=== PATIENT | female | born 1975 | race Caucasian/White ===

== ENCOUNTER 2016-10-22 09:31 | Emergency (ER) | payer OTHER ==
[~2016-10-22] VITALS: Ht 165.1 cm; Wt 63.6 kg
[2016-10-22 09:34] VITALS: BP 159/105; PULSE 92; RESP 18; O2SAT 100
[2016-10-22 09:50] VITALS: BP 153/100; PULSE 82; RESP 20; O2SAT 99
--- NOTE | 2016-10-22 09:56 | ED.REPORT ---
[facility] Illness Date of Service Oct 22, 2016 ED Provider: The patient is a 41 yo female with history of psoriasis and gastric bypass who presents to the ED for a sudden onset of neck pain, left arm pain, and headache that started yesterday. The patient reports sharp, achy pain in her neck that radiates to the left arm. She also admits to generalized weakness, nausea, occipital headache, and numbness/tingling in her left hand. The numbness is worst at the first 3 digits. There is no injury or obvious trigger. No relieving factor. The pain is worse with any movement of the neck. Patient reports similar, but milder symptoms about [address] [facility]. She was diagnosed with a "pinched nerve" and was given both oral pain medications and injection. She has not had any symptoms since and denies chronic neck pain. She denies fever, chills, neck stiffness, vomiting, abdominal pain, CP, SOB, change in mental status, slurred speech, or facial droop. She used to take Methotrexate for psoriasis in the past but has stopped taking for awhile. She has not seen a doctor for a long time. However, she reports an incident last December 2015 when she went to for ankle edema and was found to have a Hgb of 7. She was sent to the ED for blood transfusion and was sent home with Hgb of 9. She has not had any blood work since. Of note, patient is in the process of moving to [place]. Nursing Notes Stated Complaint: LEFT ARM NUMB Chief Complaint: Neuro Symptoms/ Deficits Nursing Notes Reviewed: Yes Allergies: Uncoded Allergies: PENICILLIN (Allergy, Intermediate, swelling, 10/22/16) Scheduled PRN Cyclobenzaprine (Cyclobenzaprine) 7.5 Mg Tablet 7.5 MG PO HS PRN PRN Spasm Hydrocodone-Acetaminophen 10-325 mg (Hydrocodone-Acetaminophen 10-325 mg) 1 Each Tablet 1 TABLET PO Q6H PRN PRN For Pain Hydroxyzine Pamoate (HydrOXYzine Pamoate) 50 Mg Capsule 50 MG PO Q6H PRN PRN For Anxiety General Time Seen by MD: 09:55 Chief Complaint Headache Hx Obtained From: Patient Arrived By: Walk-in Onset Occurred: Yesterday Symptom Duration: Since onset Location: : Arm left: Elbow left: Forearm left: Hand left: Head: Neck: Shoulder left: Wrist left Quality: Sharp Radiation: : Arm left: Shoulder Severity: Current: Pain level 10 out of 10 Severity: Maximum: Pain level 10 out of 10 Associated with: Reports: Headache, Nausea, Numb extremities, Pain, Denies: Abdominal pain, Anorexia, Difficulty swallowing, Dizziness, Fever, Loss of consciousness, Shortness of breath, Vision change, Vomiting Pertinent Negative: Pt denies other symptoms Exacerbated by: Moving affected area Pertinent Negative: Relieved by nothing Recent Healthcare: No recent doctor visit, No recent hospitalization Similar Sx Previous: Yes Past Medical History Past Medical History Anemia Psoriasis Past Surgical History x 1 Gastric bypass in 2009 Family History Mom at 62 yo due to breast cancer Smoking History Light Tobacco Smoker Social History Alcohol Use: "Social" Drug Use: THC (occasionally) Other Social History: Smokeless tobacco Ambulatory Status Independent Review of Systems Full Review of Systems Constitutional: Reports: Fatigue, Denies: Chills, Fever, Weakness - generalized Eyes: Denies: Blurred bilateral, Discharge bilateral, Eye pain bilateral, Photophobia, Redness right, Visual loss bilateral Ears / Nose / Throat: Reports: Earache left, Denies: Sinus problem, Sore throat, Voice change Respiratory: Denies: Dyspnea on exertion, Pleuritic pain, Shortness of breath, Wheezing Cardiovascular: Denies: Chest pain, Edema, Orthopnea, Palpitations, Syncope GI: Reports: Nausea, Denies: Abdominal pain, Constipation, Diarrhea, Dysphagia, Vomiting Female: Reports: (patient started menopause since she was 31 yo, unknown cause), Denies: Dysuria, Flank pain, Hematuria Hematologic: Denies Adenopathy, Denies Bleeding, Denies Bruising Neurologic: Reports: Headache, Numbness (worst in the first 3 digits on the left.), Denies: Abnormal movement, Bladder dysfunction, Bowel dysfunction, Change LOC , Confusion, Dizziness, Focal weakness Psychiatric: Reports: Anxiety, Insomnia, Denies: Agitation, Change mental status, Confusion, Delusional Complete sys rev & neg: except as marked. Physical Exam Vital Signs Vital Signs Date Time Temp Pulse Resp B/P Pulse Ox O2 Delivery O2 Flow Rate FiO2 10/22/16 15:16 36.4 84 20 138/88 99 Room Air 10/22/16 13:19 80 20 145/99 98 Room Air 10/22/16 11:04 79 20 157/104 100 Room Air 10/22/16 09:50 82 20 153/100 99 Room Air 10/22/16 09:34 36.4 92 18 159/105 100 Room Air Initial VS: Vital signs abnormal (hypertensive, likely due to pain. No history of HTN) General/Constitutional: Awake, Alert, No acute distress, Cooperative Distress / Hydration: Positive: Distress moderate (pain) Behavior: Positive: Anxious (tearful) Appearance / Presentation: Positive: In pain, Uncomfortable Head / Eyes: Atraumatic, Normocephalic, PERRL, EOMI, No periorbital swelling, No photophobia, No scleral icterus ENT: Atraumatic, Airway patent, Mucous membranes moist, Tympanic membs NL Neck: Atraumatic, Supple, No swelling, No masses Neck / Muscle Tenderness: Positive: Paraspinal L... (Severe), Paraspinal R... ( Moderate) Significant limited ROM due to pain. Moderate-severe paravertebral tenderness around C5-C6 on the left side. Decreased cervical lordosis. No swelling or erythema noted. Warm to touch. Respiratory / Chest: Atraumatic, Breath sounds NL, Breath sounds = bilat, No respiratory distress, No rales Cardiovascular: Heart rate NL, Regular rhythm, Heart sounds NL, No gallop, No murmurs Abdomen: Atraumatic, Soft, Non-tender, No guarding, No rebound Upper Extremities Upper Extremity / MS: Atraumatic, Inspection NL Upper Extremities Normals: Shoulder R exam normal Left Shoulder: Positive: Tenderness present... (Moderate) Left arm: diffuse tender to palpation from the shoulder down to wrist. Normal motor strength. Sensation described as "different" compare to the right, but denies decreased sensation. Neurologic: Oriented X3, Speech NL, No motor deficits, No sensory deficits, CN II - XII intact (left eye pain with upward and downward motion of extraocular muscles), Memory NL Psychiatric: Affect NL, Not suicidal Abnormal Mood/Affect: Positive: Anxious Interpretation & Diagnostics Lab Results Interpretation Result Diagram: 10/22/16 1100 10/22/16 1100 Test 10/22/16 10:10 10/22/16 10:45 10/22/16 11:00 Hold Purple Top Tube Received (Received) Hold Blue Top Tube Received (Received) Triglycerides Level 73mg/dL (0-149) Cholesterol Level 176mg/dL (100-199) LDL Cholesterol, Calculated 85.400mg/dL (0-99) VLDL Cholesterol 14.600mg/dL HDL Cholesterol 76mg/dL (>39) Cholesterol/HDL Ratio 2.32 (0.0-4.4) Hold [place] Top Tube Received (Received) Hold Urine Received (Received) White Blood Count 9.0th/mm3 (3.8-10.1) Red Blood Count 4.50mil/mm3 (3.90-5.20) Hemoglobin 9.7g/dL (12.0-15.6) Hematocrit 32.5% (35.0-46.0) Mean Corpuscular Volume 72.2fL (81-100) Mean Corpuscular Hemoglobin 21.6pg (27.0-35.0) Mean Corpuscular Hemoglobin Concent 29.8% (32.0-37.0) Red Cell Distribution Width 17.8% (12.3-15.4) Platelet Count 528bil/L (150-400) Neutrophils (%) (Auto) 82.3% (40-74) Lymphocytes (%) (Auto) 11.5% (14-46) Monocytes (%) (Auto) 5.1% (4-12) Eosinophils (%) (Auto) 0.3% (0-5) Basophils (%) (Auto) 0.7% (0-3) Sodium Level 133mEq/L (134-144) Potassium Level 4.2mEq/L (3.5-5.2) Chloride Level 96mEq/L (97-108) Carbon Dioxide Level 22mmol/L (18-29) Blood Urea Nitrogen 9mg/dL (6-24) Creatinine 0.67mg/dL (0.57-1.00) Estimat Glomerular Filtration Rate 138mL/min (>59) Glucose Level 104mg/dL (60-99) Calcium Level 9.3mg/dL (8.5-10.1) Total Bilirubin 0.2mg/dL (0.0-1.2) Aspartate Amino Transf (AST/SGOT) 18U/L (0-50) Alanine Aminotransferase (ALT/SGPT) 10U/L (0-32) Alkaline Phosphatase 98U/L (25-150) Troponin T < 0.010ug/L (0.0-0.011) Total Protein 7.8g/dL (6.4-8.4) Albumin 4.0g/dL (3.4-5.0) Lab Results Interpretation: Microcytic anemia. Chemistry and lipid profile wnl. Negative Trop x1. ECG Interpretation Interpreted by: ED physician Normal ECG Interpretation: Normal ECG w/ rate of... (78), Normal rate, Normal sinus rhythm, No acute ischemic changes, Normal QRS, Normal intervals Re-Eval/Medical Decision Med Decision/Clinical Course 41 yo female presents with acute onset of left-sided neck pain, occipital headache, and left arm pain/numbness since yesterday. Pain is severe with associated nausea and unrelenting generalized headache, worse on the left side. Patient had similar symptoms 2 years ago when she went to [facility] and was diagnosed with a possible pinched nerve. She does not recall having an MRI ever. She denies chronic pain. Our exam reveals a very anxious woman in severe pain. She received a dose of Toradol 30mg IV and Ativan 0.5mg PO with no effect. She then had a dose of [place] 10mg with very minimal relief. She finally had a dose of 0.5mg IV Dilaudid , which seemed to help, but as soon as she moves her head, the neck pain and headache comes back. ACS was ruled out with normal EKG and negative trop. In addition, patient has no complaint of chest pain. Cervical XR: 1. No definite airway narrowing in the neck. 2. Straightening of the cervical lordosis without definite fracture or malalignment. Labs: Microcytic anemia, but above transfusion threshold. Normal chemistry and lipid profile. Negative Trop. Given her symptoms and physical exam, it is unlikely that patient has a stroke, therefore stroke workups were not done. Her symptoms seem predominantly due to the severe neck pain and spasm, which could impinge on the C5-C6 nerve and thus explains her radiculopathy in the 1st 3 digits of the left hand. This was confirmed with slight improvement of her symptoms with OMT. Ideally, the patient needs a cervical MRI to rule out any nerve impingement, but this is not a life-threatening condition and does not require immediate workup. She would need to get the MRI through her PCP. She was recommended to establish care with a PCP as soon as she gets to [place]. I suggest that she takes a few days of rest before she embarks on the road-trip with her friends. She requested an additional dose of Dilaudid 0.5mg IV and and a dose of Cyclobenzaprine 10mg for the ride home. She also wanted something for sleep during the roadtrip if possible and thus Hydroxyzine 50mg was prescribed. Patient verbalized understanding and was discharged on stable condition. Time of Eval: 12:30 Patient Status: Condition unchanged Re-Evaluation/Progress Note: OMT was performed on the neck and head, including soft tissue, MFR, and cranial. Paraspinal spasm improved after treatment, but patient still has significant pain on the transvers process of C5-C7. Counseled Regarding: Diagnosis, Lab results, Need for follow-up, When/why to return to ED Discharge & Departure Shift Change Sign-Out Patient Care Transferred: No Discussed Complaint(s): Yes Response to Therapy: Improved Primary Impression: Neck pain Additional Impressions: Cervical radiculopathy Headache Headache type: unspecified Headache chronicity pattern: acute headache Intractability: intractable Qualified Code: R51 - Headache Anemia Anemia type: unspecified type Qualified Code: D64.9 - Anemia, unspecified Disposition: Home Discharge Condition All VS Reviewed: Yes Condition: Improved Patient Instructions: Acute Neck Pain (ED) Additional Instructions: Your EKG and labs today were normal, thus ruling out heart attack. Based on your symptoms and my examination, I suspect that your headache is due to the neck tension, aka cervicogenic headache. Your neurological exam was benign and it is less likely due to a stroke. The numbness and tingling in your fingers could be due to nerve impingement, likely at C5-C6, which correlates with the location of pain on your neck. The neck XR shows straightening of the cervical curve, which could be either congenital or neck stiffness from the pain. I did some OMT on your neck and head that resulted in some relaxation of the neck muscle, but if you do have a nerve impingement, the pain might stay longer. There is no indication to do an emergent MRI of the neck in the ER, but I highly recommend that you see your PCP and get that set up. Since you are moving to [place], make sure that you will establish care with a provider as soon as possible. It will be up to you to see if you are fit for the roadtrip. Sitting in the car over a long period of time will likely exacerbate you neck pain. In the mean time, I will prescribe a pain medication called [place] that you can take as needed for severe pain. You can also take a muscle relaxant called Flexeril as needed. To help you sleep and calm your nerve during the trip, I also prescribe Hydroxyzine. Please do not take any of these medications if you are gonna drive. Apply ice or heat as needed. You can also try some gentle stretches of the neck as tolerated. Go to the ER if your headache worsens or if you develop nausea, vomiting, change in vision, slurred speech, or one-sided weakness. Referrals: Donnie Squires DO (PCP) Attending Statement I saw, evaluated and discussed the care of this pt with Dr. Kristal Cunningham and I agree with the documentation above. copies to: Donnie Squires DO Andelin, Gary R DO Oct 22, 2016 09:56 Kristal Cunningham DO Oct 22, 2016 10:36
[2016-10-22] MEDS ORDERED: LORazepam 0.5 mg Tablet PO ONE (10:50)
[2016-10-22] MEDS ORDERED: Ondansetron 2 mg/mL 2 mL Inj IVPUSH PRN (10:50)
[2016-10-22 11:04] VITALS: BP 157/104; PULSE 79; RESP 20; O2SAT 100
[2016-10-22] MEDS ORDERED: HYDROcodone-APAP 10-325 mg PO ONE (11:40)
--- NOTE | 2016-10-22 11:55 | DRSVH ---
PROCEDURE: X-RAY NECK SOFT TISSUE ([id number]) INDICATIONS: cervical radiculopathy TECHNIQUE: 2 views of the neck were acquired. COMPARISON: None. FINDINGS: Airway: The airway appears patent. Soft tissues: Prevertebral soft tissues are normal in thickness. The epiglottis and aryepiglottic f olds appear normal. No soft tissue gas. Bones: No suspicious bony lesions. Visualized cervical spine demonstrates straightening of the cerv ical lordosis. Disc spaces appear preserved. No definite fractures are IMPRESSION: 1. No definite airway narrowing in the neck. 2. Straightening of the cervical lordosis without definite fracture or malalignment. Dictated by: Clifford Hernandez M.D. on 10/22/2016 at 11:39 Approved by: Clifford Hernandez M.D. on 10/22/2016 at 11:53
[2016-10-22 12:25] LABS: BASOPHILS % (AUTO) 0.7 % (0-3); EOSINOPHILS % (AUTO) 0.3 % (0-5); MONOCYTES % (AUTO) 5.1 % (4-12); Mean Corpuscular Hemoglobin 21.6 pg (27.0-35.0); Mean Corpuscular Volume 72.2 fL (81-100); NEUTROPHILS % (AUTO) 82.3 % (40-74); Platelet Count 528 bil/L (150-400)
[2016-10-22 12:50] LABS: TROPONIN T < 0.010 ug/L (0.0-0.011)
[2016-10-22] MEDS ORDERED: HYDROmorphone 0.5 mg/0.5 mL iSecure Syringe IVPUSH ONE ×2 (13:05→14:35)
[2016-10-22 13:19] VITALS: BP 145/99; PULSE 80; RESP 20; O2SAT 98
[2016-10-22] MEDS ORDERED: HYDR50CA3 PO (14:47)
[2016-10-22] MEDS ORDERED: HYDR-3740 PO (14:47)
[2016-10-22] MEDS ORDERED: CYCL7.5T27 PO (14:47)
[2016-10-22 15:16] VITALS: BP 138/88; PULSE 84; RESP 20; O2SAT 99
== END 2016-10-22 15:17 | disposition home or self-care (01) ==
LOC: SED 09:31
DX: M54.12 Radiculopathy, cervical region (principal); R51 Headache; D64.9 Anemia, unspecified; L40.9 Psoriasis, unspecified; F17.200 Nicotine dependence, unspecified, uncomplicated; Z98.84 Bariatric surgery status; Z88.0 Allergy status to penicillin
CPT/HCPCS: 70360; 80053; 80061; 81025; 84484; 85025; 93005; 96374; 96375; 96376; 99285; J1170; J1885; J2060